=== PATIENT | male | born 1935 | race Caucasian/White ===

== ENCOUNTER 2021-07-22 09:58 | Emergency (ER) | payer MEDICARE ==
[~2021-07-22] VITALS: Ht 177.8 cm; Wt 61.4 kg
[~2021-07-22 09:58] MED LIST: ALFA1TAB4 PO; ASPI-1265 PO; BRIM5DRO2; LABE100T5 PO
[2021-07-22 10:32] LABS: BASOPHILS % (AUTO) 0.2 % (0-1); EOSINOPHILS # (AUTO) 0.3 X10'3 (0-0.9); HEMATOCRIT 31.2 % (42.0-52.0); HEMOGLOBIN 10.7 g/dl (14.0-17.9); LYMPHOCYTES # (AUTO) 1.4 X10'3 (1.1-4.8); LYMPHOCYTES % (AUTO) 10.5 % (21-51); MEAN CORPUSCULAR HEMOGLOBIN 33.1 PG (27.0-31.0); MEAN CORPUSCULAR HGB CONC 34.2 g/dL (33.0-36.5); MEAN CORPUSCULAR VOLUME 96.8 FL (78-98); MEAN PLATELET VOLUME 7.7 FL (7.4-10.4); MONOCYTES # (AUTO) 1.5 X10'3 (0-0.9); MONOCYTES % (AUTO) 11.8 % (2-12); NEUTROPHILS # (AUTO) 9.8 X10'3 (1.8-7.7); NEUTROPHILS % (AUTO) 75.5 % (42-75); PLATELET COUNT 152 X10'3 (140-440); RED BLOOD COUNT 3.22 X10'6 (4.70-6.10); RED CELL DISTRIBUTION WIDTH 13.1 % (11.5-14.5); WHITE BLOOD COUNT 12.9 X10'3 (4.5-11.0)
[2021-07-22 10:45] LABS: ALANINE AMINOTRANSFERASE 11 U/L (12-78); ALKALINE PHOSPHATASE 68 IU/L (46-116); ANION GAP 9 (8-16); ASPARTATE AMINO TRANSFERASE 16 U/L (10-37); BILIRUBIN,TOTAL 0.7 MG/DL (0.1-1.0); BLOOD UREA NITROGEN 59 MG/DL (7-18); CALCIUM 8.2 MG/DL (8.5-10.1); CHLORIDE 114 MMOL/L (99-107); CREATININE 2.95 MG/DL (0.60-1.10); GLUCOSE 121 MG/DL (70-104); POTASSIUM 4.2 MMOL/L (3.5-5.1); SODIUM 147 MMOL/L (135-145); TOTAL CARBON DIOXIDE 24.4 MMOL/L (24-32); TOTAL PROTEIN 6.1 G/DL (6.4-8.2); eGFR 20 ML/MIN
[2021-07-22 11:01] LABS: D-DIMER 2.82 MG/L FEU (0-0.50)
[2021-07-22] MEDS ORDERED: DOXY100C77 PO (11:17)
[2021-07-22] MEDS: methylPREDNISolone sod succ 125mg/2ml vial IV ONE (11:17)
[2021-07-22] MEDS: azithromycin/NS 500mg/250ml 250 ML IV ONE (11:17)
[2021-07-22] MEDS: normal saline 1000ML IV soln IVB ONE (11:17)
[2021-07-22] MEDS ORDERED: ALBU6.7H9 INH (11:17)
[2021-07-22] MEDS: CefTRIAXone 2gm/D5W 50ml BAG 50 ML IV ONE (11:17)
[2021-07-22] MEDS ORDERED: CEPH250T PO (11:17)
[2021-07-22] MEDS: ipratropium/albuterol 3ml nebule NEB ONE (12:01)
[2021-07-22 13:10] VITALS: BP 148/74
== END 2021-07-22 13:11 | disposition home or self-care (01) ==
LOC: ER 09:58
DX: J18.9 Pneumonia, unspecified organism (principal); I10 Essential (primary) hypertension; G89.29 Other chronic pain; M54.9 Dorsalgia, unspecified; Z88.5 Allergy status to narcotic agent
CPT/HCPCS: 36415; 71045; 80053; 83880; 84484; 85025; 85379; 93005; 94640; 96365; 96368; 96375; 99285; J0456; J0696; J2930; J7030; 94760

== ENCOUNTER 2022-01-27 14:13 | Emergency (ER) | payer MEDICARE ==
[~2022-01-27] VITALS: Ht 180.3 cm; Wt 63.6 kg
[~2022-01-27 14:13] MED LIST changes: +ALBU6.7H9 INH
[2022-01-27 19:27] VITALS: BP 170/79
== END 2022-01-27 19:30 | disposition home or self-care (01) ==
LOC: ER 14:13
DX: S09.90XA Unspecified injury of head, initial encounter (principal); M25.551 Pain in right hip; I10 Essential (primary) hypertension; G89.29 Other chronic pain; Z90.49 Acquired absence of other specified parts of digestive tract; Z88.8 Allergy status to other drugs, medicaments and biological substances; Z79.82 Long term (current) use of aspirin; Z79.899 Other long term (current) drug therapy; R29.6 Repeated falls; W18.39XA Other fall on same level, initial encounter; Z91.81 History of falling; Y93.89 Activity, other specified; Y92.89 Other specified places as the place of occurrence of the external cause; Y99.8 Other external cause status
CPT/HCPCS: 70450; 71045; 73502; 99284